=== PATIENT | male | born 1965 | race Asian ===

== ENCOUNTER → 2017-02-02 | Outpatient (CLI) | payer OTHER ==
[~2017-02-02] MED LIST: ASPI-496 PO; DAPA5TAB PO; GLYB1TAB13 PO; INSU100V8 SQ; LOSA25TA5 PO; SIMV40TA3 PO
== END | disposition home or self-care (01) ==
LOC: CVU 07:34
PROVIDERS: ATTEND Internal Medicine Cardiovascular Disease
DX: I73.9 Peripheral vascular disease, unspecified (principal); I25.10 Atherosclerotic heart disease of native coronary artery without angina pectoris; I71.4 Abdominal aortic aneurysm, without rupture; E11.9 Type 2 diabetes mellitus without complications
CPT/HCPCS: 93978

== ENCOUNTER 2017-02-24 06:28 | Day surgery (SDC) | payer OTHER ==
[2017-02-22 10:46] LABS: ASPARTATE AMINO TRANSFERASE 11 U/L (15-37); BLOOD UREA NITROGEN 21 mg/dL (7-18)
[~2017-02-24] VITALS: Ht 166.4 cm; Wt 70.5 kg
[~2017-02-24 06:28] MED LIST changes: +SITA1TAB5 PO; +VITAMIN E PO
[2017-02-24 07:10] VITALS: BP 131/73
[2017-02-24] MEDS ORDERED: LIDOCAINE 2%, 20ML ONE (07:19)
[2017-02-24] MEDS ORDERED: PROTAMINE SULFATE 10 MG/ML, 25ML ONE (07:44)
[2017-02-24] MEDS ORDERED: FENTANYL PF 100 MCG/2ML ONE (07:45)
[2017-02-24] MEDS ORDERED: VERAPAMIL 2.5 MG/ML, 2ML ONE (07:45)
[2017-02-24] MEDS ORDERED: NITROGLYCERIN 5 MG/ML, 10ML ONE (07:45)
[2017-02-24] MEDS ORDERED: MIDAZOLAM 1 MG/ML, 5ML ONE (07:45)
[2017-02-24] MEDS ORDERED: FLUMAZENIL 0.1 MG/1 ML, 5ML ONE (07:46)
[2017-02-24] MEDS ORDERED: NALOXONE 1 MG/ML, 2ML ONE (07:46)
[2017-02-24] MEDS ORDERED: HEPARIN 1,000 UNITS/ML, 10ML ONE (07:46)
[2017-02-24] MEDS ORDERED: VISIPAQUE 270 MG/ML, 150ML BOTTLE ONE (09:00)
[2017-02-24] MEDS ORDERED: CLOPIDOGREL 300 MG TABLET ONE (10:30)
== END 2017-02-24 15:15 | disposition home or self-care (01) ==
LOC: OUT 06:28
PROVIDERS: ATTEND Internal Medicine Cardiovascular Disease
DX: I70.213 Atherosclerosis of native arteries of extremities with intermittent claudication, bilateral legs (principal); E11.9 Type 2 diabetes mellitus without complications; E78.5 Hyperlipidemia, unspecified; I10 Essential (primary) hypertension; Z79.82 Long term (current) use of aspirin
CPT/HCPCS: 36415; 37225; 37229; 75625; 75716; 80053; 85025; 99156; 99157; C1714; C1724; C1725; C1760; C1769; C1884; C1894; C2623; J1644; J2250; J3010; J3490; Q9966; 37233; J2720; J2310

== ENCOUNTER → 2017-12-29 | Outpatient (CLI) | payer OTHER ==
[~2017-12-29] MED LIST changes: +GLYB-137 PO; -GLYB1TAB13 PO; +REGADENOSON 0.4 MG/5 ML SYRINGE ONE
== END | disposition home or self-care (01) ==
LOC: CFH 07:36
PROVIDERS: ATTEND Internal Medicine Cardiovascular Disease
DX: I25.89 Other forms of chronic ischemic heart disease (principal); I25.2 Old myocardial infarction; I10 Essential (primary) hypertension; I25.10 Atherosclerotic heart disease of native coronary artery without angina pectoris; I73.9 Peripheral vascular disease, unspecified
CPT/HCPCS: 78452; 93017; A9502; J2785

== ENCOUNTER → 2018-01-12 | Outpatient (CLI) | payer OTHER ==
[~2018-01-12] MED LIST changes: -REGADENOSON 0.4 MG/5 ML SYRINGE ONE
== END | disposition home or self-care (01) ==
LOC: CVU 06:42
PROVIDERS: ATTEND Internal Medicine Cardiovascular Disease
DX: I70.201 Unspecified atherosclerosis of native arteries of extremities, right leg (principal); I10 Essential (primary) hypertension; E11.51 Type 2 diabetes mellitus with diabetic peripheral angiopathy without gangrene; I25.10 Atherosclerotic heart disease of native coronary artery without angina pectoris; E78.00 Pure hypercholesterolemia, unspecified; Z95.1 Presence of aortocoronary bypass graft
CPT/HCPCS: 93922; 93926

== ENCOUNTER 2019-04-03 07:50 | Outpatient (CLI) | payer OTHER ==
[~2019-04-03 07:50] MED LIST changes: +ATOR-2 PO; +CLOP75TA52 PO; +INSU100I32 SC; +LOSA25TA25 PO; -LOSA25TA5 PO; +VITA400T6 PO
[2019-04-18] MEDS ORDERED: DAPA1TAB3 IJ (08:42)
[2019-04-18] MEDS ORDERED: FOLI1TAB5 PO (08:42)
== END 2019-04-03 23:59 | disposition home or self-care (01) ==
LOC: CVU 07:50
PROVIDERS: ATTEND Internal Medicine Cardiovascular Disease
DX: I70.203 Unspecified atherosclerosis of native arteries of extremities, bilateral legs (principal); I25.10 Atherosclerotic heart disease of native coronary artery without angina pectoris; E11.9 Type 2 diabetes mellitus without complications; I10 Essential (primary) hypertension; E78.5 Hyperlipidemia, unspecified
CPT/HCPCS: 93922; 93926

== ENCOUNTER 2019-04-20 09:26 | Day surgery (SDC) | payer OTHER ==
[~2019-04-20] VITALS: Ht 165.1 cm; Wt 71.3 kg
[2019-04-20 10:15] VITALS: BP 118/74
== END 2019-04-20 18:40 | disposition home or self-care (01) ==
LOC: OUT 09:26
PROVIDERS: ATTEND Internal Medicine Cardiovascular Disease
DX: I70.201 Unspecified atherosclerosis of native arteries of extremities, right leg (principal); I10 Essential (primary) hypertension; E11.9 Type 2 diabetes mellitus without complications; E78.2 Mixed hyperlipidemia; Z79.4 Long term (current) use of insulin; Z79.82 Long term (current) use of aspirin; Z79.899 Other long term (current) drug therapy; Z95.5 Presence of coronary angioplasty implant and graft
CPT/HCPCS: 36415; 37225; 75710; 76937; 80048; 82962; 85025; 99156; 99157; C1714; C1751; C1760; C1769; C1884; C1894; C2623; J1644; J2250; J3010; J7030; Q9966; J2720; J2310